=== PATIENT | female | born 1980 | race Caucasian/White ===

== ENCOUNTER 2024-10-18 20:37 | Emergency (ER) | payer OTHER ==
[~2024-10-18] VITALS: Ht 154.9 cm; Wt 52.2 kg
[2024-10-18] MEDS ORDERED: CEPHALEXIN500 M1 PO (22:40)
[2024-10-18] MEDS ORDERED: CEPHALEXIN 500 MG CAP PO ONE (22:45)
== END 2024-10-18 22:55 | disposition home or self-care (01) ==
LOC: ED 20:37
DX: S50.362A Insect bite (nonvenomous) of left elbow, initial encounter (principal); L02.414 Cutaneous abscess of left upper limb; F41.9 Anxiety disorder, unspecified; F17.200 Nicotine dependence, unspecified, uncomplicated; M79.7 Fibromyalgia; Z90.49 Acquired absence of other specified parts of digestive tract; W57.XXXA Bitten or stung by nonvenomous insect and other nonvenomous arthropods, initial encounter; Y93.89 Activity, other specified; Y92.89 Other specified places as the place of occurrence of the external cause; Y99.8 Other external cause status